=== PATIENT | female | born 2000 | race Two or more races ===

== ENCOUNTER 2024-12-20 16:54 | Emergency (ER) | payer MEDICAID, SELFPAY ==
[2024-12-20 17:04] VITALS: BP 112/75; PULSE 116; RESP 18; TEMP 36.9; O2SAT 98; BMI 47.2
--- NOTE | 2024-12-20 17:12 | XR_ITS ---
Examination: CT abdomen and pelvis without contrast. Coronal 3-D reconstructions. Sagittal 2-D reconstructions. Date and time of exam:December 20, 2024 1815 hrs. Indications: Generalized abdominal pain beginning 5 hours ago Comparison: October 09, 2015 CTDI: vol (mGy): 18.9 DLP: (mGycm): 1073 Technique: Axial images of the abdomen have been obtained, 3 mm slice thickness Intravenous contrast material has not been administered. Low dose protocols were performed. One or more of the following dose reduction techniques were used; automated exposure control, adjustment of the mA and/or KV according to patient size, use of iterative reconstruction technique. Findings: Fatty liver No focal liver or splenic lesions Cholelithiasis No pancreatic or adrenal mass 1 mm right renal calculus axial image 95 No hydronephrosis or ureteral calculi Subcentimeter pericaval lymph nodes Small lymph nodes in the right lower mesentery Normal appendix No bowel obstruction Contracted urinary bladder Anteverted uterus Intact osseous structures Impression: Cholelithiasis, recommend repeat gallbladder sonography follow-up 1 mm nonobstructing right renal calculus, no hydronephrosis or ureteral calculi Normal appendix
--- NOTE | 2024-12-20 17:12 | PD.EDRME ---
Rapid Medical Screening Exam RME Arrival date/time: 12/20/24 16:54 24-year-old female with no known medical history presents to the emergency room with a chief complaint of 10 out of 10 abdominal and pelvic pain x 2 hours I have greeted and performed a focused initial assessment of this patient. A comprehensive ED assessment and evaluation of the patient, analysis of all test results, and completion of the medical decision making process will be conducted by additional ED providers. Chief Complaint: Abdominal Pain Vital signs: Vital Signs Temperature 98.4 F 12/20/24 17:04 Pulse Rate 116 H 12/20/24 17:04 Respiratory Rate 18 12/20/24 17:04 Blood Pressure 112/75 12/20/24 17:04 Pulse Oximetry (%) 98 12/20/24 17:04 Oxygen Delivery Method Room Air 12/20/24 17:04 Vital signs reviewed by provider: Yes
[2024-12-20] MEDS: HYDROcodone/APAP 5/325 TABLET 1 TAB PO (17:22)
[2024-12-20 17:30] LABS: Collection Type, Urine Clean Catch
[2024-12-20 17:32] LABS: HCG Qualitative,Urine Negative
[2024-12-20 17:42] LABS: Bacteria,Urine Rare; Bilirubin,Urine Negative (Negative); Blood,Urine 3+ (Negative); Clarity,Urine Turbid (Clear/Hazy); Color,Urine Yellow (Lt Yel-Yel); Glucose, Urine Trace (Negative); Ketones,Urine Negative (Negative); Leukocyte Esterase,Urine Positive (Negative); Nitrite,Urine Negative (Negative); PH,Urine 6.5 (5.0-7.0); Protein,Urine 3+ (Neg - Trace); RBC,Urine 3494 /hpf (0-3); Specific Gravity,Urine 1.038 (1.001-1.035); Squamous Epithelial Cell,Urine 9 /hpf (0-5); WBC,Urine 586 /hpf (0-5)
[2024-12-20 18:49] LABS: Basophils # (Auto) 0.1 Thou/mm3 (0.0-0.2); Basophils % (Auto) 1 % (0-2.5); Eosinophils # (Auto) 0.1 Thou/mm3 (0.0-0.5); Eosinophils % (Auto) 1 % (0-10); Hematocrit 38.5 % (36.0-46.0); Hemoglobin 12.4 g/dL (12.0-16.0); Immature Granulocytes % (Auto) 1 % (0-0); Immature Granulocytes Auto 0.06 Thou/mm3 (0.00-0.00); Lymphocytes # (Auto) 2.3 Thou/mm3 (1.0-4.8); Lymphocytes % (Auto) 19 % (10-50); Mean Corpuscular HGB Conc 32.2 g/dl (31.0-37.0); Mean Corpuscular Hemoglobin 27.8 pg (25.0-35.0); Mean Corpuscular Volume 86 fL (80-100); Monocytes # (Auto) 0.6 Thou/mm3 (0.0-0.8); Monocytes % (Auto) 5 % (0-12); Neutrophils # (Auto) 9.4 Thou/mm3 (1.8-7.7); Neutrophils % (Auto) 75 % (37-80); Nucleated Red Blood Cell % 0 /100 WBC (0); Platelet Count 269 Thou/mm3 (140-440); RDW Standard Deviation 44.6 fL (36.4-46.3); Red Blood Count 4.46 Miln/mm3 (4.00-5.20); White Blood Count 12.5 Thou/mm3 (3.6-11.0)
[2024-12-20 19:21] LABS: Alanine Aminotransferase 66 U/L (10-49); Albumin, Serum 4.4 gm/dL (3.5-5.0); Albumin/Globulin Ratio 1.4 (1.2-2.2); Alkaline Phosphatase 111 U/L (46-116); Anion Gap 9 (7-16); Aspartate Amino Transferase 27 U/L (0-34); BUN/Creatinine Ratio 11 Ratio (12-20); Bilirubin,Total 0.3 mg/dL (0.3-1.2); Blood Urea Nitrogen 9 mg/dL (9-23); Carbon Dioxide 26.8 mMol/L (20.0-31.0); Chloride 104 mMol/L (98-107); Creatinine (Component) 0.8 mg/dL (0.6-1.3); Estimated Creatinine Clearance 124.6 mL/min (>60); Globulin 3.2 gm/dL (2.3-3.5); Glucose 111 mg/dL (74-106); Lipase 33 U/L (12-53); Osmolality,Calculated 279 (275-295); Potassium 3.9 mMol/L (3.4-5.1); Sodium 140 mMol/L (136-145); Total Protein 7.6 gm/dL (5.7-8.2); eGFR > 60 See Note
[2024-12-20 19:26] VITALS: BP 110/70; PULSE 91; RESP 18; TEMP 36.8; O2SAT 95
--- NOTE | 2024-12-20 22:03 | XR_ITS ---
Examination: Abdomen sonogram, Limited Date and time of exam: December 20, 2024 1038 hrs. Indications: Lower abdominal pain beginning 9 hours ago Technique: Real-time stevens scale transabdominal sonographic images of the upper abdomen obtained. Findings: Multiple gallstones Gallbladder wall 0.2 cm no edema Common bile duct 0.3 cm Pancreatic head 2.7 cm Liver 20.5 cm fatty infiltration no focal liver lesions Normal hepatopedal portal venous flow Patent IVC Impression: Cholelithiasis, negative for cholecystitis Normal common bile duct Moderate hepatomegaly fatty infiltration
[2024-12-21 01:40] VITALS: BP 120/80; PULSE 97; RESP 18; TEMP 36.7; O2SAT 95
--- NOTE | 2024-12-21 01:51 | PD.EDABDPN ---
ED Abdominal Pain RME/HPI General Chief Complaint: Abdominal Pain Stated complaint: ABDOMINAL PAIN Time seen by provider: 12/21/24 01:47 Arrival date/time: 12/20/24 16:54 Source: patient Mode of arrival: ambulatory Limitations: no limitations RME / HPI RME / HPI narrative: 12/20/24 16:54 24-year-old female with no known medical history presents to the emergency room with a chief complaint of 10 out of 10 abdominal and pelvic pain x 2 hours I have greeted and performed a focused initial assessment of this patient. A comprehensive ED assessment and evaluation of the patient, analysis of all test results, and completion of the medical decision making process will be conducted by additional ED providers. Dr. Carreno?s Main ED Evaluation: 24-year-old female, with no significant past medical history, presented to the ED ambulatory with a 2-hour history of severe (10/10) abdominal and pelvic pain. She denies fever but reports the onset of dysuria today. No additional complaints at this time. Related Data Home Medications ?Medication ?Instructions ?Recorded ?Confirmed vits no.[id number]-ferrous fum 1 tab PO QDAY 11/18/21 07/27/22 27 mg iron-folic acid 800 mcg tablet ( Vitamin) Previous Rx's ?Medication ?Instructions ?Recorded hydrocodone 5 mg-acetaminophen 325 1 tab PO TID #10 tabs 07/27/22 mg tablet ondansetron HCl 4 mg tablet 4 mg PO TID PRN nausea and 07/27/22 vomiting #14 tabs ibuprofen 600 mg tablet 600 mg PO Q6H PRN fever or pain 01/12/23 #30 tabs doxycycline monohydrate 100 mg 100 mg PO BID Urinary tract 12/21/24 capsule infection 7 days #14 caps phenazopyridine 100 mg tablet 100 mg PO TID PRN pain 6 doses #6 12/21/24 (Pyridium) tabs Allergies Allergy/AdvReac Type Severity Reaction Status Date / Time No Known Allergies Allergy Verified 12/20/24 16:57 Review of Systems Review of Systems Systems Reviewed: All systems reviewed, normal except as documented Past Medical History Past Medical History NEUROLOGIC: Negative Neurological Disorders CARDIAC: Negative Cardiac Disorders or Congestive Heart Failure RESPIRATORY: Negative Chronic Obstructive Pulmonary Disease (COPD) GASTROINTESTINAL: Negative Gastrointestinal Disorders GENITOURINARY: Negative Genitourinary Disorders or Renal Disease REPRODUCTIVE: Negative Breast Cancer MUSCULOSKELETAL: Negative Musculoskeletal Disorders ENDOCRINE: Negative Endocrine Disorders, Diabetes Mellitus Type 1 or Diabetes Mellitus Type 2 HEMATOLOGIC: Negative Blood Disorders OTHER HISTORY: Positive Hospitalization; Negative Autoimmune Disease, Down Syndrome, Developmental Delay, Shingles, Falls, Blood Transfusions, Blood Transfusion Reaction, Anesthesia Reactions, Organ Transplant, Chemotherapy, Radiation Therapy, Hyperbaric Therapy, MRSA, Clostridium Difficile, Cancer or Breast Cancer Family History FAMILY HISTORY: Negative Family Psychiatric Problems, Family Respiratory Disorders, Family Cardiac Disorders, Family Gastrointestinal Problems, Family Cancer, Family Surgery or Family Anesthesia Reaction Surgical History SURGICAL: Negative Section or Organ Transplant Social History SMOKING STATUS: Never smoker ED Exam General Limitations: Present no limitations General appearance: Present alert and in no apparent distress Head Head exam: Present atraumatic Eye Eye exam: Present normal appearance, PERRL and EOMI ENT ENT exam: Present normal exam, normal oropharynx and mucous membranes moist Neck Neck exam: Present normal inspection, full ROM and trachea midline Chest Chest inspection: Present normal inspection and symmetric chest wall rise Respiratory Respiratory exam: Present normal lung sounds bilaterally Cardiovascular Cardiovascular exam: Present regular rate, normal rhythm and normal heart sounds Abdominal Exam Abdominal exam: Present soft and normal bowel sounds Extremities Exam Extremities exam: Present normal inspection and full ROM Back Exam Back exam: Present normal inspection and full ROM Neurological Exam Neurological exam: Present alert, oriented X3 and CN II-XII intact Psychiatric Psychiatric exam: Present normal affect and normal mood Skin Skin exam: Present warm, dry, intact and normal color Course Quality Measures none Orders Category Date Time Status CT abdomen pelvis wo con Stat Exams 12/20/24 17:12 Completed US abdomen limited Stat Exams 12/20/24 22:03 Completed CBC Stat Lab 12/20/24 18:36 Completed CMP [Comprehensive Metabolic Panel] Stat Lab 12/20/24 18:36 Completed HCG Qualitative,Urine Stat Lab 12/20/24 17:19 Completed Lipase Stat Lab 12/20/24 18:36 Completed UA [Urinalysis] Stat Lab 12/20/24 17:19 Completed Urine Culture Stat Lab 12/20/24 17:19 Received HYDROcodone*/APAP 5/325 [Winter 5/325] Med 12/20/24 17:11 Discontinued 1 tab PO X1 ONE Phenazopyridine HCl [Pyridium] Med 12/21/24 01:55 Discontinued 100 mg PO X1 ONE cefTRIAXone [Rocephin] 1,000 mg Med 12/21/24 01:55 Discontinued Lidocaine 1% 20 ml [Xylocaine 1% 20 ML] 2.1 ml IM X1 Vital Signs Vital signs: Vital Signs Temperature 98.4 F 12/20/24 17:04 Pulse Rate 116 H 12/20/24 17:04 Respiratory Rate 18 12/20/24 17:04 Blood Pressure 112/75 12/20/24 17:04 Pulse Oximetry (%) 98 12/20/24 17:04 Oxygen Delivery Method Room Air 12/20/24 17:04 Abdominal Pain MDM MDM Narrative MDM Narrative:: 24-year-old female, with no significant past medical history, presented to the ED ambulatory with a 2-hour history of severe (10/) abdominal and pelvic pain. She denies fever but reports the onset of dysuria today. No additional complaints at this time. Will give 1 dose of antibiotics here. She will be discharged with PO antibiotics. Scribe Attestation: Amy Rod, am scribing for and in the presence of Dr. Carreno. Provider Notation: Although this document has been carefully reviewed, there may still be some phonetic and other typographical errors. These errors are purely grammatical due to imperfections in the software program and should not be construed in any way to compromise the substance of the patient's medical care during this visit. Patient data External records reviewed:: [facility] previous records Clinical information provided by:: patient Social determinants that could affect healthcare access:: none Patient has the following chronic illnesses:: na How is presenting disease/condition affected by chronic disease/condition?: no chronic disease Evaluation data The following diagnostics were reviewed and interpreted by me:: lab results and radiology exam(s) Lab and/or radiology exams considered but not ordered:: na Interpretation Summary: Examination: Abdomen sonogram, Limited Date and time of exam: December 20, 2024 1038 hrs. Indications: Lower abdominal pain beginning 9 hours ago Technique: Real-time stevens scale transabdominal sonographic images of the upper abdomen obtained. Findings: Multiple gallstones Gallbladder wall 0.2 cm no edema Common bile duct 0.3 cm Pancreatic head 2.7 cm Liver 20.5 cm fatty infiltration no focal liver lesions Normal hepatopedal portal venous flow Patent IVC Impression: Cholelithiasis, negative for cholecystitis Normal common bile duct Moderate hepatomegaly fatty infiltration Dictated By: Tom Moon MD Examination: CT abdomen and pelvis without contrast. Date and time of exam:December 20, 2024 1815 hrs. Indications: Generalized abdominal pain beginning 5 hours ago Comparison: October 09, 2015 Findings: Fatty liver No focal liver or splenic lesions Cholelithiasis No pancreatic or adrenal mass 1 mm right renal calculus axial image 95 No hydronephrosis or ureteral calculi Subcentimeter pericaval lymph nodes Small lymph nodes in the right lower mesentery Normal appendix No bowel obstruction Contracted urinary bladder Anteverted uterus Intact osseous structures Impression: Cholelithiasis, recommend repeat gallbladder sonography follow-up 1 mm nonobstructing right renal calculus, no hydronephrosis or ureteral calculi Normal appendix Dictated By: Tom Moon MD Medications / Prescriptions Medications or Prescriptions considered but not ordered:: na Medication administrations:: Medication Administration History Discontinued Medications Hydrocodone Bitart/Acetaminophen (Hydrocodone/Apap 5/325 Tablet) 1 tab PO X1 ONE Stop: 12/20/24 17:12 Last Admin: 12/20/24 17:22 Dose: 1 tab Documented By: DIEGO Ceftriaxone Sodium 1,000 mg/ (Lidocaine HCl 2.1 ml) 0 mg IM X1 ONE Stop: 12/21/24 01:56 Last Admin: 12/21/24 02:03 Dose: 1,000 mg Documented By: MASOOD Phenazopyridine HCl (Phenazopyridine Hcl 100 Mg Tablet) 100 mg PO X1 ONE Stop: 12/21/24 01:56 Last Admin: 12/21/24 02:03 Dose: 100 mg Documented By: MASOOD as above Consultations Consultation(s) initiated? (list below): No Diagnosis Differential diagnosis abdominal pain: abdominal pain, calculus of kidney and other (UTI) Most likely diagnosis given after review of the tests above:: Urinary tract infection Admission Indicated Admission indicated?: not indicated Admission Request Was there a request for admission?: No Disposition Plan Disposition Plan: Discharge Discharge Attestation Discharge Attestation: The patient and all family members were given an opportunity to ask questions and understood the discharge instructions. Discharge instructions specifically effects, indications for sooner follow up or return to the emergency department, and the expected course of current diagnosis. Patient condition: Stable Discharge Plan Plan Patient Disposition: HOME (Self Care) Disposition Comment: Stable for discharge home Patient condition on transfer: Stable Prescriptions/Referrals Prescriptions/Med Rec: New doxycycline monohydrate 100 mg capsule 100 mg PO BID 7 Days Qty: 14 0RF phenazopyridine [Pyridium] 100 mg tablet 100 mg PO TID PRN (Reason: pain) Qty: 6 0RF No Action Vitamin 27 mg iron- 800 mcg Tablet 1 tab PO QDAY hydrocodone-acetaminophen 5-325 mg tablet 1 tab PO TID MDD 3 Qty: 10 0RF ondansetron HCl 4 mg tablet 4 mg PO TID PRN (Reason: nausea and vomiting) Qty: 14 0RF ibuprofen 600 mg tablet 600 mg PO Q6H PRN (Reason: fever or pain) Qty: 30 0RF Referrals: [facility] [Outside] - In 1 week Problem List Clinical Impression: Urinary tract infection Patient/Caregiver Discharge Instructions Discharge Activity: activity as tolerated Education Materials: Urinary Tract Infections in Women, Understanding Urinary Tract ... Additional Instructions: Please return to the emergency department for any worsening or any further medical problems and we will help you. Otherwise you should follow-up with your primary care doctor within the next several days. There are 2 medicines waiting for you at your pharmacy. One of them is called doxycycline. This is your antibiotic. He take this medicine twice per day until they are completely gone, for the full 7 days. You do this even if you are feeling better before that please. The other medicine is called Pyridium. This is the medicine that turns your urine orange. This medicine should get rid of all of the symptoms that you are having. Print Language: Polish Stand Alone Forms: Gladys Award Info., Patient Portal Info Letter
[2024-12-21] MEDS: PHENAZOPYRIDINE HCL 100 MG TABLET PO (02:03)
[2024-12-21] MEDS: cefTRIAXone 1,000 MG, LIDOCAINE 1% 20 ML 2.1 ML IM (02:03)
== END 2024-12-21 02:06 | disposition home or self-care (01) ==
PROVIDERS: Nurse Practitioner Family; Emergency Provider Emergency Medicine; PCP Family Medicine
DX: N39.0 Urinary tract infection, site not specified (principal)
CPT/HCPCS: 36415; 74176; 76705; 80053; 81001; 81025; 83690; 85025; 87077; 87086; 87186; 96372; 99284; J0696; J3490; A9270